=== PATIENT | male | born 1955 | race Caucasian/White ===

== ENCOUNTER 2016-09-07 10:57 | Emergency (ER) | payer OTHER ==
[~2016-09-07 10:57] MED LIST: LOPRESSOR25 MG PO; MTP50TCR PO
[2016-09-07 11:08] VITALS: PULSE 74; RESP 20; O2SAT 97
--- NOTE | 2016-09-07 11:33 | ED.REPORT ---
HPI-Back Pain 40 and Over Date of Service Sep 07, 2016 ED Provider: Nette Conte History of Present Illness: 61-year-old male fell on 08/28/2016 while working for [employer]. He fell from about 3 feet landing on his left ankle first then landing on his tailbone. He landed onto a curb while climbing out of the back of the truck. Left ankle has been feeling better, the swelling has decreased. His tailbone has gotten better but still painful. Worse with position changes, sitting the wrong way or standing too long. He has been off work resting. It is still painful for him to change positions or to stand for more than a few hours. He has been taking Advil. he has a history of a previous left ankle injury he has never injured his low back or tailbone in the past. Hx HTN, he monitors it. no meds. Deneis CP, SOB, dizziness, GIORDANO. Nursing Notes Stated Complaint: HURT TAILBONE Chief Complaint: Multiple Trauma/Fall Nursing Notes Reviewed: Yes Allergies: Coded Allergies: No Known Allergies (Unverified , 09/07/16) Scheduled Metoprolol Suc-Expunged Drug, Do Not Renew! (Metoprolol Suc-Expunged Drug, Do Not Renew!) 50 Mg Tber 50 MG PO DAILY Metoprolol Tart-Expunged Drug, Do Not Renew! (Metoprolol Tart-Expunged Drug, Do Not Renew!) 25 Mg Tab 25 MG PO BID DO NOT CONTINUE THIS MED General Time Seen by MD: 11:14 Chief Complaint Back pain, Other (l ankle) Hx Obtained From: Patient Arrived By: Walk-in Sudden in Onset?: Yes Onset Occurred: 1 week ago Symptom Duration: Waxes and wanes Caused by: Fall from height (3ft) Location: : Coccyx: Spinal sacroiliac area Severity: Maximum: Severe Recent Healthcare: No recent doctor visit Similar Sx Previous: No Past Medical History Past Medical History Notes: murmur Review of Systems Review of Systems Note: L ankle, tailbone pain Basic Review of Systems Eyes: Vision NL, No discharge ENT: Hearing NL, No pain, No nasal congestion, No pharyngeal pain Psychiatric: Normal thought content Musculoskeletal: Reports: Back pain, Lumbar pain Neurologic: Denies: Abnormal movement, Bladder dysfunction, Bowel dysfunction, Change LOC, Confusion, Dizziness, Focal weakness, Headache, Lightheaded, Numbness, Problem walking, Seizure, Shaking, Slurred speech, Spinning sensation , Syncope, Unable to speak, Vision change, Weakness Complete sys rev & neg: except as marked. Physical Exam Initial Vital Signs Vital Signs (First) Date Time Temp Pulse Resp B/P Pulse Ox O2 Delivery O2 Flow Rate FiO2 09/07/16 11:08 36.1 74 20 97 Room Air 09/07/16 13:13 170/105 Initial VS: Reviewed, Vital signs normal Head / Eyes: Atraumatic, Normocephalic, PERRL ENT: Mucous membranes moist, Conjunctiva normal, No scleral icterus Neck: Supple, Non-tender, Full range of motion Extremities: Vascular intact, Neuro intact, No swelling, No tenderness Skin: Warm, Dry, No cyanosis Cardiovascular: Heart rate NL, Regular rhythm, No gallop Heart Sounds / Murmur: Positive: Murmur present... (II/) Back: Atraumatic, Inspection NL, Full range of motion Flank / Spine / Paraspinal: Positive: Coccyx tender, SI joint tender L, SI joint tender R, Sacral paraspinal tend... (Mid), Sacral spine tender... (Mid) Ankle / Foot: Atraumatic, Inspection NL, No swelling mild lateral malleolus tenderness, no swelling noted. has slightly decreased ROM with rotation of ankle. Interpretation & Diagnostics Interpretation & Diagnostics: PROCEDURE: X-RAY SACRUM AND COCCYX, MINIMUM THREE VIEWS ([id number]) INDICATIONS: pain TECHNIQUE: 3 views of the sacrum and coccyx acquired. COMPARISON: None. FINDINGS: Bones: No fractures or dislocations. No suspicious bony lesions. Soft tissues: Visualized bowel gas pattern is normal. No suspicious soft tissue densities. IMPRESSION: No acute fracture. No osseous lesion. If clinical suspicion and/or symptoms persist, further assessment with repeat plainfilms, or advanced imaging (e.g., CT, MRI, or bone scan) may be helpful for further assessment. Dictated by: Karlo Hunter M.D. on 09/07/2016 at 12:21 Approved by: Karlo Hunter M.D. on 09/07/2016 at 12:21 Re-Eval/Medical Decision Med Decision/Clinical Course xray negative. will f/u his L&I injury with residency clinic or walk in clinic. light duty ok cleared for 3 days. BP noted to be high 170/105. 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 he will monitor BP closely and f/u with [facility] concerning HTN Discharge & Departure Shift Change Sign-Out Imaging Studies: Imaging discussed Response to Therapy: Unchanged Impression: Primary Impression: Tailbone injury Encounter type: initial encounter Qualified Code: S39.92XA - Unspecified injury of lower back, initial encounter Additional Impressions: Left ankle sprain Encounter type: initial encounter Involved ligament of ankle: unspecified ligament Qualified Code: S93.402A - Sprain of unspecified ligament of left ankle, initial encounter Hypertension Hypertension type: essential hypertension Hypertension goal: unspecified goal Qualified Code: I10 - Essential (primary) hypertension Disposition: Home Discharge Condition All VS Reviewed: Yes Condition: Stable Patient Instructions: Ankle Sprain (ED), Coccyx Injury (ED) Additional Instructions: for tailbone injury, find position of comfort. use ice as needed for pain/ swelling. advil as well. get a "donut" to sit on. expect pain x 6-8 weeks, then gradual improvement. Light duty as tolerated. NO lifting more than 5 lbs, no climbing ladders. Limit bending/stooping to less than 1hr per day. Ankle pain- activity as tolerated. use ice and advil for pain return to ER for severe pain, numbness or tingling down legs, loss of bowel or bladder or fevers. otherwise, with residency clinic or walk in for further management. YOu should see them before thursday. Your blood pressure was noted to be high today. monitor daily and if continues to be elevated >140-150/90 you need to be treated. You could buy a BP cuff for home to monitor easily as well. If you become symptomatic with chest pain, headache, dizziness or shortness of breath or any other concerning symptoms return to the emergency room immediately Referrals: Rigo Marcus MD (PCP) [facility] Provider for APC: Jenelle Manzano MD, Linnea K ARNP Sep 07, 2016 11:33
--- NOTE | 2016-09-07 12:23 | DRSVH ---
PROCEDURE: X-RAY SACRUM AND COCCYX, MINIMUM THREE VIEWS ([id number]) INDICATIONS: pain TECHNIQUE: 3 views of the sacrum and coccyx acquired. COMPARISON: None. FINDINGS: Bones: No fractures or dislocations. No suspicious bony lesions. Soft tissues: Visualized bowel gas pattern is normal. No suspicious soft tissue densities. IMPRESSION: No acute fracture. No osseous lesion. If clinical suspicion and/or symptoms persist, fur ther assessment with repeat plainfilms, or advanced imaging (e.g., CT, MRI, or bone scan) may be help ful for further assessment. Dictated by: Karlo Hunter M.D. on 09/07/2016 at 12:21 Approved by: Karlo Hunter M.D. on 09/07/2016 at 12:21
[2016-09-07 13:13] VITALS: BP 170/105; PULSE 75; RESP 16; O2SAT 100
[2016-09-07 13:38] VITALS: BP 170/105; PULSE 78; RESP 16; O2SAT 98
== END 2016-09-07 13:41 | disposition home or self-care (01) ==
LOC: SED 10:57
DX: S39.82XA Other specified injuries of lower back, initial encounter (principal); S93.402A Sprain of unspecified ligament of left ankle, initial encounter; W17.89XA Other fall from one level to another, initial encounter; W10.1XXA Fall (on)(from) sidewalk curb, initial encounter; Y92.812 Truck as the place of occurrence of the external cause; Y93.89 Activity, other specified; Y99.0 Civilian activity done for income or pay; I10 Essential (primary) hypertension; Z87.828 Personal history of other (healed) physical injury and trauma